=== PATIENT | male | born 1930 | race Caucasian/White ===

== ENCOUNTER 2017-02-20 12:25 | Emergency (ER) | payer OTHER ==
[~2017-02-20] VITALS: Ht 182.9 cm; Wt 85.0 kg
[2017-02-20] MEDS ORDERED: HYDROmorphone 1 MG/ML, 1ML IV PRN (13:00)
[2017-02-20] MEDS ORDERED: SODIUM CHLORIDE FLUSH 10ML SYR IVF ONE (13:00)
[2017-02-20] MEDS ORDERED: ONDANSETRON 2MG/ML, 2ML IVP ONE (13:00)
[2017-02-20] MEDS ORDERED: PLEASE ENTER ALLERGIES MC SCH ×2 (13:00)
[2017-02-20] MEDS ORDERED: HYDROmorphone 1 MG/ML, 1ML ONE (13:03)
[2017-02-20] MEDS ORDERED: ONDANSETRON 2MG/ML, 2ML ONE (13:03)
[2017-02-20 13:32] LABS: ASPARTATE AMINO TRANSFERASE 25 U/L (15-37); BLOOD UREA NITROGEN 22 mg/dL (7-18)
[2017-02-20 13:41] LABS: IS PT STATUS REG ER OR PRE ER? YES
[2017-02-20] MEDS ORDERED: HYDR25TA11 PO (14:36)
[2017-02-20] MEDS ORDERED: FINA5TAB4 PO (14:36)
[2017-02-20] MEDS ORDERED: ACET325T14 PO (14:36)
[2017-02-20] MEDS ORDERED: OXYB5TAB7 PO (14:36)
[2017-02-20] MEDS ORDERED: LISI-167 PO (14:36)
[2017-02-20] MEDS ORDERED: DOCU100C8 PO (14:36)
[2017-02-20] MEDS ORDERED: POTA10CA PO (14:36)
[2017-02-20] MEDS ORDERED: CHOL20003 PO (14:36)
[2017-02-20] MEDS ORDERED: ATOR20TA PO (14:36)
[2017-02-20] MEDS ORDERED: CLOP75TA22 PO (14:36)
[2017-02-20] MEDS ORDERED: CYAN100T PO (14:36)
[2017-02-20 16:01] VITALS: BP 141/89
== END 2017-02-20 16:03 | disposition home or self-care (01) ==
LOC: ED 14:34
DX: R60.0 Localized edema (principal); I11.0 Hypertensive heart disease with heart failure; I50.9 Heart failure, unspecified; E78.5 Hyperlipidemia, unspecified; M54.5 Low back pain; G89.29 Other chronic pain
CPT/HCPCS: 36415; 71010; 80053; 83880; 84484; 85025; 93005; 93970; 96374; 96375; 99285; J1170; J2405

== ENCOUNTER 2019-03-27 13:12 | Inpatient (IN) | payer OTHER ==
[~2019-03-27] VITALS: Ht 182.9 cm; Wt 112.9 kg
[~2019-03-27 13:12] MED LIST: ACET325T14 PO; ATOR20TA PO; CHOL2000 PO; CLOP75TA52 PO; CYAN100T2 PO; DOCU100C33 PO; FINA5TAB4 PO; HYDR25TA11 PO; LISI-167 PO; OXYB5TAB7 PO; POTA10CA PO
--- NOTE | 2019-03-27 13:40 | NUR ---
BIB [facility] FROM HOME FOR WEAKNESS X6 HOURS AND COUGH WITH SOB. HX COPD AND CHF. HOME O2 3L AT ALL TIMES NEEDING TO INCREASE TO 5L TO STAY WNL. CONNECTED TO ALL MONITORING, VSS. BILATERAL PEDAL EDEMA NOTED. AWAITING MD ORDERS AT [facility] TIME. CALL LIGHT WITHIN REACH
[2019-03-27] MEDS ORDERED: SODIUM CHLORIDE FLUSH 10ML SYR IVF ONE (14:00)
[2019-03-27 14:24] LABS: BASOPHILS # (AUTO) 0.07 x10^3/uL (0-0.1); BASOPHILS % (AUTO) 1 % (0-1); EOSINOPHILS # (AUTO) 0.26 x10^3/uL (0-0.4); EOSINOPHILS % (AUTO) 2 % (1-7); LYMPHOCYTES # (AUTO) 0.46 x10^3/uL (1-3.4); LYMPHOCYTES % (AUTO) 4 % (22-44); MD NO; MEAN CORPUSCULAR HEMOGLOBIN 26.5 pg (27.5-34.5); MEAN CORPUSCULAR HGB CONC 31.4 g/dL (33.2-36.2); MEAN CORPUSCULAR VOLUME 84.4 fL (81-97); MEAN PLATELET VOLUME 9.2 fL (7.4-10.4); MONOCYTES # (AUTO) 0.43 x10^3/uL (0.2-0.8); MONOCYTES % (AUTO) 4 % (2-9); NEUTROPHILS # (AUTO) 10.72 x10^3/uL (1.8-6.8); NEUTROPHILS % (AUTO) 90 % (42-75); PLATELET COUNT 145 x10^3/uL (130-400); RED BLOOD COUNT 5.46 x10^6/uL (4.38-5.82); RED CELL DISTRIBUTION WIDTH 15.1 % (9.4-14.8)
[2019-03-27 14:35] LABS: ALANINE AMINOTRANSFERASE 25 U/L (12-78); ANION GAP 5 mmol/L (5-15); CALCIUM 9.1 mg/dL (8.5-10.1); CHLORIDE 101 mmol/L (98-107); CREATININE 1.14 mg/dL (0.7-1.3)
[2019-03-27 14:40] LABS: ALKALINE PHOSPHATASE 82 U/L (45-117); BILIRUBIN,TOTAL 0.4 mg/dL (0.2-1.0); TOTAL PROTEIN 6.7 g/dL (6.4-8.2); TROPONIN I < 0.015 ng/mL (0.000-0.045)
--- NOTE | 2019-03-27 15:00 | NUR ---
ALL RESULTS BACK AT THIS TIME, CHART UP FOR RECHECK
--- NOTE | 2019-03-27 16:29 | NUR ---
PT RESTING IN BED. PT REPOSITONED FOR COMFORT AND VSS. PT URINATED ABOUT 600CC AT THIS TIME.
--- NOTE | 2019-03-27 16:50 | NUR ---
RAD HARKINS ORDERED FOR PT.
--- NOTE | 2019-03-27 17:01 | NUR ---
PT GIVEN MEAL TRAY
[2019-03-27] MEDS ORDERED: FUROSEMIDE 40 MG/4 ML IV ONE (17:30)
--- NOTE | 2019-03-27 17:54 | NUR ---
PT CURRENTLY RESTING ON GURNEY. NAD NOTED. SKIN PWD .RESP EVEN AND UNLABORED. PT ABLE TO SPEAK IN FULL 5-7 WORD SENTENCES W/O DIFFICULTY. PT AWARE WE ARE WAITING FOR ADMISSION. PT ON CONT BP, CARDIAC AND O2 MONIOTRS. CALL LIGHT WITHIN REACH. WILL CONT TO MONITOR PT.
[2019-03-27] MEDS ORDERED: BISACODYL 10 MG SUPP PR PRN (18:00)
[2019-03-27] MEDS ORDERED: POLYETHYLENE GLYCOL 17 GM PACKET PO PRN (18:00)
[2019-03-27] MEDS ORDERED: ONDANSETRON ODT 4 MG PO PRN (18:00)
[2019-03-27] MEDS ORDERED: ACETAMINOPHEN 325 MG TABLET PO PRN (18:00)
[2019-03-27] MEDS ORDERED: FUROSEMIDE 40 MG/4 ML ONE (18:03)
--- NOTE | 2019-03-27 18:03 | NUR ---
REPORT TO THOMAS BRYANT ON TELE.
[2019-03-27] MEDS ORDERED: CARVEDILOL 3.125 MG TABLET ONE (18:04)
[2019-03-27] MEDS: CARVEDILOL 3.125 MG TABLET PO SCH (18:08)
[2019-03-27 18:29] VITALS: BP 111/49
[2019-03-27] MEDS: ATORVASTATIN 20 MG TABLET PO SCH (20:37)
[2019-03-27] MEDS: SODIUM CHLORIDE FLUSH 10ML SYR IVF SCH (20:38)
[2019-03-28 00:25] VITALS: BP 138/63
[2019-03-28 05:17] LABS: BASOPHILS # (AUTO) 0.02 x10^3/uL (0-0.1); BASOPHILS % (AUTO) 0 % (0-1); EOSINOPHILS # (AUTO) 0.31 x10^3/uL (0-0.4); EOSINOPHILS % (AUTO) 4 % (1-7); LYMPHOCYTES % (AUTO) 8 % (22-44); MD NO; MEAN CORPUSCULAR HEMOGLOBIN 27.2 pg (27.5-34.5); MEAN CORPUSCULAR HGB CONC 31.7 g/dL (33.2-36.2); MEAN CORPUSCULAR VOLUME 85.6 fL (81-97); MEAN PLATELET VOLUME 9.1 fL (7.4-10.4); MONOCYTES # (AUTO) 0.86 x10^3/uL (0.2-0.8); MONOCYTES % (AUTO) 10 % (2-9); NEUTROPHILS # (AUTO) 6.41 x10^3/uL (1.8-6.8); NEUTROPHILS % (AUTO) 77 % (42-75); PLATELET COUNT 123 x10^3/uL (130-400); RED BLOOD COUNT 5.03 x10^6/uL (4.38-5.82); RED CELL DISTRIBUTION WIDTH 15.2 % (9.4-14.8)
[2019-03-28 05:25] LABS: ALANINE AMINOTRANSFERASE 22 U/L (12-78); ALBUMIN 2.7 g/dL (3.4-5.0); CALCIUM 8.5 mg/dL (8.5-10.1); CHLORIDE 97 mmol/L (98-107)
[2019-03-28 05:27] LABS: ALKALINE PHOSPHATASE 70 U/L (45-117); BILIRUBIN,TOTAL 0.4 mg/dL (0.2-1.0)
[2019-03-28 05:34] LABS: ANION GAP 1 mmol/L (5-15)
[2019-03-28] MEDS: CARVEDILOL 3.125 MG TABLET PO SCH ×2 (06:20→17:56)
[2019-03-28 07:01] VITALS: BP 125/73
[2019-03-28] MEDS ORDERED: FUROSEMIDE 40 MG/4 ML IV SCH (07:30)
[2019-03-28] MEDS: POTASSIUM CHLORIDE 20 MEQ TAB.ER.PRT PO SCH (08:23)
[2019-03-28] MEDS: FINASTERIDE 5 MG TABLET PO SCH (08:23)
[2019-03-28] MEDS: SENNA/DOCUSATE TABLET PO SCH (08:24)
[2019-03-28] MEDS: OXYBUTYNIN CHLORIDE 5 MG TABLET PO SCH (08:24)
[2019-03-28] MEDS: CHOLECALCIFEROL 1,000 UNIT TABLET PO SCH (08:24)
[2019-03-28] MEDS: LISINOPRIL 10 MG TABLET PO SCH (08:24)
[2019-03-28] MEDS: CLOPIDOGREL 75 MG TABLET PO SCH (08:24)
[2019-03-28] MEDS: CYANOCOBALOMIN 100MCG TABLET PO SCH (08:24)
[2019-03-28] MEDS: SODIUM CHLORIDE FLUSH 10ML SYR IVF SCH ×2 (08:25→20:39)
[2019-03-28] MEDS ORDERED: ALBUTEROL/IPRATROPIUM 2.5MG/0.5MG, 3 ML NPPB SCH (09:30)
[2019-03-28] MEDS ORDERED: ALBUTEROL/IPRATROPIUM 2.5MG/0.5MG, 3 ML NPPB PRN (09:30)
[2019-03-28 12:44] VITALS: BP 142/79
[2019-03-28] MEDS: methylPREDNISolone SOD SUCC 125 MG/2 ML IV SCH ×2 (13:46→20:39)
[2019-03-28] MEDS: ALBUTEROL/IPRATROPIUM 2.5MG/0.5MG, 3 ML NPPB SCH ×3 (14:00→21:10)
[2019-03-28] MEDS ORDERED: AcetaZOLAMIDE INJ 500 MG IVPush ONE (17:00)
[2019-03-28 18:32] VITALS: BP 97/63
[2019-03-28] MEDS: ATORVASTATIN 20 MG TABLET PO SCH (20:39)
[2019-03-29 00:45] VITALS: BP 111/53
[2019-03-29] MEDS: CARVEDILOL 3.125 MG TABLET PO SCH ×2 (05:40→17:10)
[2019-03-29] MEDS: methylPREDNISolone SOD SUCC 125 MG/2 ML IV SCH ×3 (05:41→21:08)
[2019-03-29 05:54] LABS: BASOPHILS % (AUTO) 0 % (0-1); EOSINOPHILS % (AUTO) 0 % (1-7); LYMPHOCYTES # (AUTO) 0.39 x10^3/uL (1-3.4); LYMPHOCYTES % (AUTO) 4 % (22-44); MD NO; MEAN CORPUSCULAR HEMOGLOBIN 26.7 pg (27.5-34.5); MEAN CORPUSCULAR HGB CONC 31.7 g/dL (33.2-36.2); MEAN CORPUSCULAR VOLUME 84.1 fL (81-97); MEAN PLATELET VOLUME 8.9 fL (7.4-10.4); MONOCYTES # (AUTO) 0.13 x10^3/uL (0.2-0.8); MONOCYTES % (AUTO) 1 % (2-9); NEUTROPHILS # (AUTO) 8.61 x10^3/uL (1.8-6.8); NEUTROPHILS % (AUTO) 94 % (42-75); PLATELET COUNT 118 x10^3/uL (130-400); RED BLOOD COUNT 5.21 x10^6/uL (4.38-5.82); RED CELL DISTRIBUTION WIDTH 15.3 % (9.4-14.8)
[2019-03-29 06:01] LABS: ANION GAP 4 mmol/L (5-15); CALCIUM 9.1 mg/dL (8.5-10.1); CHLORIDE 98 mmol/L (98-107)
[2019-03-29] MEDS: ALBUTEROL/IPRATROPIUM 2.5MG/0.5MG, 3 ML NPPB SCH ×5 (08:00→21:32)
[2019-03-29] MEDS: CYANOCOBALOMIN 100MCG TABLET PO SCH (08:20)
[2019-03-29] MEDS: LISINOPRIL 10 MG TABLET PO SCH (08:20)
[2019-03-29] MEDS: OXYBUTYNIN CHLORIDE 5 MG TABLET PO SCH (08:20)
[2019-03-29] MEDS: CHOLECALCIFEROL 1,000 UNIT TABLET PO SCH (08:20)
[2019-03-29] MEDS: CLOPIDOGREL 75 MG TABLET PO SCH (08:20)
[2019-03-29] MEDS: FINASTERIDE 5 MG TABLET PO SCH (08:20)
[2019-03-29] MEDS: POTASSIUM CHLORIDE 20 MEQ TAB.ER.PRT PO SCH (08:20)
[2019-03-29] MEDS: SENNA/DOCUSATE TABLET PO SCH (08:22)
[2019-03-29 08:24] VITALS: BP 124/74
[2019-03-29] MEDS: SODIUM CHLORIDE FLUSH 10ML SYR IVF SCH ×2 (09:00→21:00)
[2019-03-29 13:23] VITALS: BP 91/54
[2019-03-29] MEDS ORDERED: AcetaZOLAMIDE INJ 500 MG IVPush ONE (17:00)
[2019-03-29 19:31] VITALS: BP 98/61
[2019-03-29] MEDS: ATORVASTATIN 20 MG TABLET PO SCH (21:08)
[2019-03-30 00:24] VITALS: BP 110/55
[2019-03-30 05:51] LABS: CHLORIDE 99 mmol/L (98-107)
[2019-03-30] MEDS: CARVEDILOL 3.125 MG TABLET PO SCH (05:54)
[2019-03-30] MEDS: methylPREDNISolone SOD SUCC 125 MG/2 ML IV SCH (05:54)
[2019-03-30 05:57] LABS: ANION GAP 6 mmol/L (5-15); CALCIUM 9.2 mg/dL (8.5-10.1); CREATININE 1.46 mg/dL (0.7-1.3)
[2019-03-30] MEDS: ALBUTEROL/IPRATROPIUM 2.5MG/0.5MG, 3 ML NPPB SCH ×4 (06:00→19:01)
[2019-03-30 06:42] LABS: BASOPHILS % (AUTO) 0 % (0-1); EOSINOPHILS % (AUTO) 0 % (1-7); LYMPHOCYTES # (AUTO) 0.64 x10^3/uL (1-3.4); LYMPHOCYTES % (AUTO) 4 % (22-44); MD NO; MEAN CORPUSCULAR HEMOGLOBIN 26.5 pg (27.5-34.5); MEAN CORPUSCULAR HGB CONC 31.2 g/dL (33.2-36.2); MEAN CORPUSCULAR VOLUME 84.8 fL (81-97); MEAN PLATELET VOLUME 9.4 fL (7.4-10.4); MONOCYTES # (AUTO) 0.87 x10^3/uL (0.2-0.8); MONOCYTES % (AUTO) 5 % (2-9); NEUTROPHILS # (AUTO) 15.11 x10^3/uL (1.8-6.8); NEUTROPHILS % (AUTO) 91 % (42-75); PLATELET COUNT 132 x10^3/uL (130-400); RED BLOOD COUNT 5.43 x10^6/uL (4.38-5.82); RED CELL DISTRIBUTION WIDTH 15.5 % (9.4-14.8)
[2019-03-30 07:44] VITALS: BP 114/61
[2019-03-30] MEDS: SENNA/DOCUSATE TABLET PO SCH (09:06)
[2019-03-30] MEDS: CYANOCOBALOMIN 100MCG TABLET PO SCH (09:07)
[2019-03-30] MEDS: FINASTERIDE 5 MG TABLET PO SCH (09:07)
[2019-03-30] MEDS: LISINOPRIL 10 MG TABLET PO SCH (09:07)
[2019-03-30] MEDS: CHOLECALCIFEROL 1,000 UNIT TABLET PO SCH (09:07)
[2019-03-30] MEDS: CLOPIDOGREL 75 MG TABLET PO SCH (09:07)
[2019-03-30] MEDS: OXYBUTYNIN CHLORIDE 5 MG TABLET PO SCH (09:07)
[2019-03-30] MEDS: SODIUM CHLORIDE FLUSH 10ML SYR IVF SCH ×2 (09:07→20:52)
[2019-03-30] MEDS ORDERED: PHARMACY MAY ADJ FOR RENAL FX MC PRN (10:30)
[2019-03-30] MEDS: GUAIFENESIN ER 600 MG TABLET PO SCH ×2 (11:38→20:52)
[2019-03-30] MEDS: HEPARIN 5,000 UNITS/ML, 1ML SQ SCH ×2 (11:38→17:59)
[2019-03-30 14:27] VITALS: BP 103/62
[2019-03-30 19:57] VITALS: BP 113/56
[2019-03-30] MEDS: ATORVASTATIN 20 MG TABLET PO SCH (20:51)
[2019-03-31 00:21] VITALS: BP 106/59
[2019-03-31] MEDS: HEPARIN 5,000 UNITS/ML, 1ML SQ SCH ×3 (03:00→10:47)
[2019-03-31] MEDS: ALBUTEROL/IPRATROPIUM 2.5MG/0.5MG, 3 ML NPPB SCH ×4 (05:15→20:15)
[2019-03-31 06:57] LABS: MEAN CORPUSCULAR HEMOGLOBIN 27.3 pg (27.5-34.5); MEAN CORPUSCULAR HGB CONC 32.2 g/dL (33.2-36.2); MEAN CORPUSCULAR VOLUME 84.7 fL (81-97); MEAN PLATELET VOLUME 9.5 fL (7.4-10.4); PLATELET COUNT 136 x10^3/uL (130-400); RED CELL DISTRIBUTION WIDTH 15.1 % (9.4-14.8)
[2019-03-31 07:07] LABS: ANION GAP 4 mmol/L (5-15); CHLORIDE 103 mmol/L (98-107); CREATININE 1.33 mg/dL (0.7-1.3)
[2019-03-31 07:25] LABS: MD YES
[2019-03-31 07:27] LABS: LYMPH#(MANUAL) 0.55 x10^3/uL (1-3.4); LYMPHS% (MANUAL) 3 % (22-44); MONOS#(MANUAL) 0.73 x10^3/uL (0.3-2.7); MONOS% (MANUAL) 4 % (2-9); SEG#(MANUAL) 17.02 x10^3/uL (1.8-6.8); SEGS% (MANUAL) 93 % (42-75)
[2019-03-31 07:28] LABS: <PLATELET ESTIMATE> ADEQUATE; <PLT MORPHOLOGY> NORMAL PLT MORPH; <RBC MORPHOLOGY> NORMAL
[2019-03-31] MEDS ORDERED: POTA20TA6 PO (07:36)
[2019-03-31] MEDS ORDERED: TIOT18CA INH (07:36)
[2019-03-31] MEDS ORDERED: UREA 10% TP (07:36)
[2019-03-31] MEDS ORDERED: OLODATEROL INH (07:36)
[2019-03-31] MEDS ORDERED: CYAN500T18 PO (07:36)
[2019-03-31] MEDS ORDERED: BUDE10.2 INH (07:36)
[2019-03-31] MEDS ORDERED: PRED10TA PO (07:36)
[2019-03-31] MEDS ORDERED: FURO40TA6 PO (07:36)
[2019-03-31] MEDS ORDERED: TIOTROPIUM INH (07:36)
[2019-03-31] MEDS ORDERED: ALBUTEROL 0.083% NEB (07:42)
[2019-03-31] MEDS ORDERED: ALBU90AE INH (07:42)
[2019-03-31 08:54] VITALS: BP 117/60
[2019-03-31] MEDS: OXYBUTYNIN CHLORIDE 5 MG TABLET PO SCH (09:00)
[2019-03-31] MEDS: GUAIFENESIN ER 600 MG TABLET PO SCH ×2 (09:43→20:54)
[2019-03-31] MEDS: SENNA/DOCUSATE TABLET PO SCH (09:43)
[2019-03-31] MEDS: SODIUM CHLORIDE FLUSH 10ML SYR IVF SCH ×2 (09:43→20:54)
[2019-03-31] MEDS: CHOLECALCIFEROL 1,000 UNIT TABLET PO SCH (09:43)
[2019-03-31] MEDS: CLOPIDOGREL 75 MG TABLET PO SCH (09:43)
[2019-03-31] MEDS: FINASTERIDE 5 MG TABLET PO SCH (09:46)
[2019-03-31] MEDS: CYANOCOBALOMIN 100MCG TABLET PO SCH (09:46)
[2019-03-31 14:31] VITALS: BP 123/75
[2019-03-31 18:56] VITALS: BP 129/71
[2019-03-31] MEDS: ATORVASTATIN 20 MG TABLET PO SCH (20:55)
[2019-04-01] MEDS: HEPARIN 5,000 UNITS/ML, 1ML SQ SCH ×3 (02:36→18:28)
[2019-04-01 03:50] VITALS: BP 145/81
[2019-04-01 06:29] LABS: CALCIUM 9.8 mg/dL (8.5-10.1); CREATININE 1.03 mg/dL (0.7-1.3)
[2019-04-01] MEDS: ALBUTEROL/IPRATROPIUM 2.5MG/0.5MG, 3 ML NPPB SCH ×4 (06:36→19:31)
[2019-04-01 06:39] LABS: CHLORIDE 108 mmol/L (98-107)
[2019-04-01 06:44] LABS: ANION GAP 6 mmol/L (5-15)
[2019-04-01 07:30] VITALS: BP 118/72
[2019-04-01] MEDS: SENNA/DOCUSATE TABLET PO SCH (08:03)
[2019-04-01] MEDS: CYANOCOBALOMIN 100MCG TABLET PO SCH (08:03)
[2019-04-01] MEDS: FINASTERIDE 5 MG TABLET PO SCH (08:03)
[2019-04-01] MEDS: CHOLECALCIFEROL 1,000 UNIT TABLET PO SCH (08:03)
[2019-04-01] MEDS: GUAIFENESIN ER 600 MG TABLET PO SCH ×2 (08:03→20:12)
[2019-04-01] MEDS: CLOPIDOGREL 75 MG TABLET PO SCH (08:03)
[2019-04-01] MEDS: OXYBUTYNIN CHLORIDE 5 MG TABLET PO SCH (08:03)
[2019-04-01] MEDS: SODIUM CHLORIDE FLUSH 10ML SYR IVF SCH ×2 (08:04→20:12)
[2019-04-01 13:35] VITALS: BP 94/58
[2019-04-01] MEDS: ATORVASTATIN 20 MG TABLET PO SCH (20:12)
[2019-04-01 20:14] VITALS: BP 117/60
[2019-04-02 01:02] VITALS: BP 145/73
[2019-04-02] MEDS: HEPARIN 5,000 UNITS/ML, 1ML SQ SCH ×3 (02:19→17:59)
[2019-04-02 07:16] VITALS: BP 158/69
[2019-04-02] MEDS: CYANOCOBALOMIN 100MCG TABLET PO SCH (07:50)
[2019-04-02] MEDS: SENNA/DOCUSATE TABLET PO SCH (07:50)
[2019-04-02] MEDS: CLOPIDOGREL 75 MG TABLET PO SCH (07:50)
[2019-04-02] MEDS: GUAIFENESIN ER 600 MG TABLET PO SCH ×2 (07:50→19:53)
[2019-04-02] MEDS: CHOLECALCIFEROL 1,000 UNIT TABLET PO SCH (07:50)
[2019-04-02] MEDS: FINASTERIDE 5 MG TABLET PO SCH (07:50)
[2019-04-02] MEDS: OXYBUTYNIN CHLORIDE 5 MG TABLET PO SCH (07:50)
[2019-04-02] MEDS: ALBUTEROL/IPRATROPIUM 2.5MG/0.5MG, 3 ML NPPB SCH ×4 (08:00→18:55)
[2019-04-02] MEDS: SODIUM CHLORIDE FLUSH 10ML SYR IVF SCH ×2 (10:06→19:53)
[2019-04-02 13:13] VITALS: BP 130/59
[2019-04-02 19:24] VITALS: BP 124/60
[2019-04-02] MEDS: ATORVASTATIN 20 MG TABLET PO SCH (19:53)
[2019-04-03] MEDS: HEPARIN 5,000 UNITS/ML, 1ML SQ SCH ×2 (02:14→10:26)
[2019-04-03 02:16] VITALS: BP 138/65
[2019-04-03] MEDS: ALBUTEROL/IPRATROPIUM 2.5MG/0.5MG, 3 ML NPPB SCH ×3 (07:00→16:48)
[2019-04-03 07:15] VITALS: BP 153/75
[2019-04-03] MEDS: SODIUM CHLORIDE FLUSH 10ML SYR IVF SCH (08:04)
[2019-04-03] MEDS: FINASTERIDE 5 MG TABLET PO SCH (08:08)
[2019-04-03] MEDS: CLOPIDOGREL 75 MG TABLET PO SCH (08:08)
[2019-04-03] MEDS: GUAIFENESIN ER 600 MG TABLET PO SCH (08:08)
[2019-04-03] MEDS: OXYBUTYNIN CHLORIDE 5 MG TABLET PO SCH (08:08)
[2019-04-03] MEDS: CHOLECALCIFEROL 1,000 UNIT TABLET PO SCH (08:09)
[2019-04-03] MEDS: SENNA/DOCUSATE TABLET PO SCH (08:09)
[2019-04-03] MEDS: CYANOCOBALOMIN 100MCG TABLET PO SCH (08:09)
[2019-04-03] MEDS ORDERED: AMOXICILLIN/CLAV 875-125MG TABLET PO SCH (09:00)
[2019-04-03] MEDS ORDERED: ASPIRIN 81 MG TABLET CHEW PO SCH (09:00)
[2019-04-03] MEDS ORDERED: GUAI600T31 PO (12:46)
[2019-04-03] MEDS ORDERED: PRED20TA PO (12:46)
[2019-04-03] MEDS ORDERED: AMOX1TAB12 PO (12:46)
[2019-04-03] MEDS ORDERED: CYAN100T2 PO (12:46)
[2019-04-03] MEDS ORDERED: ASPI-515 PO (12:46)
[2019-04-03 13:39] VITALS: BP 117/58
== END 2019-04-03 18:03 | DRG 291 ==
LOC: ED 16:48 → EDIP 17:09 → 5SO 18:16 → 4NOR 03-31 17:15
PROVIDERS: ADMIT Internal Medicine; ATTEND Internal Medicine
DX: I11.0 Hypertensive heart disease with heart failure (principal); N17.0 Acute kidney failure with tubular necrosis; J96.21 Acute and chronic respiratory failure with hypoxia; E87.3 Alkalosis; J44.0 Chronic obstructive pulmonary disease with (acute) lower respiratory infection; J44.1 Chronic obstructive pulmonary disease with (acute) exacerbation; I50.43 Acute on chronic combined systolic (congestive) and diastolic (congestive) heart failure; Z66 Do not resuscitate; D69.6 Thrombocytopenia, unspecified; D64.9 Anemia, unspecified; E66.9 Obesity, unspecified; E78.5 Hyperlipidemia, unspecified; J20.1 Acute bronchitis due to Hemophilus influenzae; N40.0 Benign prostatic hyperplasia without lower urinary tract symptoms; Z82.49 Family history of ischemic heart disease and other diseases of the circulatory system; Z87.891 Personal history of nicotine dependence; Z86.73 Personal history of transient ischemic attack (TIA), and cerebral infarction without residual deficits; Z91.14 Patient's other noncompliance with medication regimen
CPT/HCPCS: 36415; 36600; 71045; 80048; 80053; 82803; 83605; 83735; 83880; 84145; 84484; 85025; 87040; 87070; 87077; 87205; 93005; 93308; 93321; 93325; 94640; 96374; G0378; J1644; J1940; J7620; J1120; J2930; J7512